=== PATIENT | female | born 1975 | race Caucasian/White ===

== ENCOUNTER 2017-05-04 15:04 | Inpatient (IN) | payer OTHER ==
[2017-05-04] MEDS ORDERED: VANCOMYCIN IV PER PHARMACY 1 EACH MISC MISCELLANE PRN (15:35)
[2017-05-04] MEDS ORDERED: cefTRIAXone IN SWFI 1,000 MG/10 ML SYRINGE IVP STA (15:35)
[2017-05-04] MEDS ORDERED: MORPHINE SULFATE 4 MG/ML SYRINGE IVP STA ×2 (15:38→18:02)
--- NOTE | 2017-05-04 15:38 | ED ---
General Adult HPI - General Chief complaint: Skin/Abscess/Foreign Body Stated complaint: poss cellulitis Time Seen by Provider: 05/04/17 15:05 Source: patient, RN notes reviewed Mode of arrival: ambulatory Limitations: no limitations - History of Present Illness Initial comments: This is a 41-year-old female presents to the emergency department complaining of an abscess and cellulitis to her right buttocks. Patient states she went to [facility] where she had a CAT scan and was told she had an abscess she was told to stay in the hospital but she refused. Patient states she's been taking her antibiotic for one day and the pain is gotten considerably worse and her OxyContin that she normally takes is not handling the pain. Patient denies any fever or chills. Patient states the pain is definitely getting worse. He denies any abdominal pain patient denies any chest pain difficulty breathing or shortness of breath. Patient denies headache patient denies numbness weakness. Patient denies any other areas of abscess or redness. - Related Data Home Medications Medication Instructions Recorded Confirmed DULoxetine HCL [Cymbalta] 120 mg PO DAILY 12/25/14 05/04/17 Linaclotide [Linzess] 145 mcg PO DAILY@199912/25/14 05/04/17 tiZANidine HCL 6 mg PO 12/25/14 05/04/17 Benzonatate [Benzonatate Perle] 200 mg PO TID PRN 05/04/17 05/04/17 Budesonide/Formoterol Fumarate 2 puff INHALATION RT-BID PRN 05/04/17 05/04/17 [Symbicort 160-4.5 Mcg Inhaler] Cephalexin [Keflex] 500 mg PO QID 05/04/17 05/04/17 Ibuprofen [Motrin] 800 mg PO QID 05/04/17 05/04/17 Medroxyprogesterone Acetate 150 mg IM Q90D 05/04/17 05/04/17 [Depo-Provera] Omeprazole [PriLOSEC] 40 mg PO DAILY@199905/04/17 05/04/17 QUEtiapine [SEROquel] 400 mg PO DAILY@199905/04/17 05/04/17 Ramelteon [Rozerem] 8 mg PO 05/04/17 05/04/17 Stelara (Unknown Dose) 1 dose SQ Q90D 05/04/17 05/04/17 Sulfamethox-Tmp 800-160Mg [Bactrim 1 tab PO Q12HR 05/04/17 05/04/17 DS 800-160 mg] Topiramate [Topamax] 200 mg PO DAILY@199905/04/17 05/04/17 busPIRone HCL 30 mg PO BID 05/04/17 05/04/17 carBAMazepine [TEGretol] 600 mg PO HS 05/04/17 05/04/17 hydrOXYzine HCL 25 mg PO HS 05/04/17 05/04/17 oxyCODONE HCL [oxyCODONE HCL ER] 60 mg PO Q12H 05/04/17 05/04/17 traZODone HCL 300 mg PO HS 05/04/17 05/04/17 Allergies Allergy/AdvReac Type Severity Reaction Status Date / Time No Known Allergies Allergy Verified 05/04/17 15:59 Review of Systems ROS Statement: Those systems with pertinent positive or pertinent negative responses have been documented in the HPI. ROS Other: All systems not noted in ROS Statement are negative. Past Medical History Past Medical History: Deep Vein Thrombosis (DVT) Additional Past Medical History / Comment(s): bipolar History of Any Multi-Drug Resistant Organisms: None Reported Past Surgical History: Orthopedic Surgery Additional Past Surgical History / Comment(s): eye surg- dacryoctstorhinostomy Past Psychological History: Bipolar Smoking Status: Current every day smoker Past Alcohol Use History: Occasional Past Drug Use History: Marijuana General Exam - General Exam Comments Initial Comments: GENERAL Patient is well-developed and well-nourished. Patient is in mild distress. EYES Patient's pupils are equal and round. Extraocular motion is intact SKIN Right buttocks has a large area of cellulitis which is indurated and extremely tender NEURO The patient is alert and oriented 3 PYSCH Patient has normal interpersonal interactions. MUSCULOSKELETAL All 4 extremities have full range of motion Limitations: no limitations Course Vital Signs 05/04/17 15:06 Temperature 96.9 F L Pulse Rate 96 Respiratory 18 Rate Blood Pressure 153/79 O2 Sat by Pulse 98 Oximetry Medical Decision Making - Medical Decision Making I received the CAT scan report from her [facility] looks like there is a 5.5 cm area on the right buttocks concerning for an abscess. I started the patient on some Rocephin as well as vancomycin. EKG shows normal sinus rhythm at 93 bpm NC interval is 136 dresses 78 QT interval 360 QTC is 447. Patient's EKG shows no ST segment elevation or depression or T wave abnormalities are noted - Lab Data Result diagrams: 05/04/17 15:33 05/04/17 15:33 Lab Results 05/04/17 05/04/17 05/04/17 Range/Units 15:33 15:33 15:33 WBC 14.9 H (3.8-10.6) k/uL RBC 3.49 L (3.80-5.40) m/uL Hgb 11.5 (11.4-16.0) gm/dL Hct 32.5 L (34.0-46.0) % MCV 93.0 (80.0-100.0) fL MCH 33.0 (25.0-35.0) pg MCHC 35.5 (31.0-37.0) g/dL RDW 12.2 (11.5-15.5) % Plt Count 211 (150-450) k/uL Neutrophils % 81 % Lymphocytes % 9 % Monocytes % 6 % Eosinophils % 1 % Basophils % 0 % Neutrophils # 12.0 H (1.3-7.7) k/uL Lymphocytes # 1.3 (1.0-4.8) k/uL Monocytes # 0.9 (0-1.0) k/uL Eosinophils # 0.2 (0-0.7) k/uL Basophils # 0.1 (0-0.2) k/uL PT (9.0-12.0) sec INR (<1.2) APTT (22.0-30.0) sec Sodium 137 (137-145) mmol/L Potassium 3.2 L (3.5-5.1) mmol/L Chloride 100 (98-107) mmol/L Carbon Dioxide 21 L (22-30) mmol/L Anion Gap 16 mmol/L BUN 8 (7-17) mg/dL Creatinine 0.80 (0.52-1.04) mg/dL Est GFR (CKD-EPI)AfAm >90 (>60 ml/min/1.73 sqM) Est GFR (CKD-EPI)NonAf >90 (>60 ml/min/1.73 sqM) Glucose 119 H (74-99) mg/dL Plasma Lactic Acid Jason 1.0 (0.7-2.0) mmol/L Calcium 9.2 (8.4-10.2) mg/dL Total Bilirubin 0.7 (0.2-1.3) mg/dL AST 43 H (14-36) U/L ALT 36 (9-52) U/L Alkaline Phosphatase 176 H (38-126) U/L Total Protein 6.4 (6.3-8.2) g/dL Albumin 3.4 L (3.5-5.0) g/dL Urine Color Urine Appearance (Clear) Urine pH (5.0-8.0) Ur Specific [place] (1.001-1.035) Urine Protein (Negative) Urine Glucose (UA) (Negative) Urine Ketones (Negative) Urine Blood (Negative) Urine Nitrite (Negative) Urine Bilirubin (Negative) Urine Urobilinogen (<2.0) mg/dL Ur Leukocyte Esterase (Negative) Urine RBC (0-5) /hpf Urine WBC (0-5) /hpf Ur Squamous Epith Cells (0-4) /hpf Urine Bacteria (None) /hpf Hyaline Casts (0-2) /lpf Urine Mucus (None) /hpf 05/04/17 05/04/17 Range/Units 15:33 16:09 WBC (3.8-10.6) k/uL RBC (3.80-5.40) m/uL Hgb (11.4-16.0) gm/dL Hct (34.0-46.0) % MCV (80.0-100.0) fL MCH (25.0-35.0) pg MCHC (31.0-37.0) g/dL RDW (11.5-15.5) % Plt Count (150-450) k/uL Neutrophils % % Lymphocytes % % Monocytes % % Eosinophils % % Basophils % % Neutrophils # (1.3-7.7) k/uL Lymphocytes # (1.0-4.8) k/uL Monocytes # (0-1.0) k/uL Eosinophils # (0-0.7) k/uL Basophils # (0-0.2) k/uL PT 10.1 (9.0-12.0) sec INR 1.0 (<1.2) APTT 24.5 (22.0-30.0) sec Sodium (137-145) mmol/L Potassium (3.5-5.1) mmol/L Chloride (98-107) mmol/L Carbon Dioxide (22-30) mmol/L Anion Gap mmol/L BUN (7-17) mg/dL Creatinine (0.52-1.04) mg/dL Est GFR (CKD-EPI)AfAm (>60 ml/min/1.73 sqM) Est GFR (CKD-EPI)NonAf (>60 ml/min/1.73 sqM) Glucose (74-99) mg/dL Plasma Lactic Acid Jason (0.7-2.0) mmol/L Calcium (8.4-10.2) mg/dL Total Bilirubin (0.2-1.3) mg/dL AST (14-36) U/L ALT (9-52) U/L Alkaline Phosphatase (38-126) U/L Total Protein (6.3-8.2) g/dL Albumin (3.5-5.0) g/dL Urine Color Dark Brown Urine Appearance Cloudy H (Clear) Urine pH 6.0 (5.0-8.0) Ur Specific [place] 1.037 H (1.001-1.035) Urine Protein 3+ H (Negative) Urine Glucose (UA) Trace H (Negative) Urine Ketones Trace H (Negative) Urine Blood Negative (Negative) Urine Nitrite Negative (Negative) Urine Bilirubin 1+ H (Negative) Urine Urobilinogen 12.0 (<2.0) mg/dL Ur Leukocyte Esterase Trace H (Negative) Urine RBC 6 H (0-5) /hpf Urine WBC 31 H (0-5) /hpf Ur Squamous Epith Cells 23 H (0-4) /hpf Urine Bacteria Rare H (None) /hpf Hyaline Casts 688 H (0-2) /lpf Urine Mucus Many H (None) /hpf Disposition Clinical Impression: Abscess of buttock, right Disposition: ADMITTED IP TO THIS HOSP Referrals: Avinash Silverman MD [Primary Care Provider] - 1-2 days Time of Disposition: 16:15
[2017-05-04] MEDS ORDERED: MORPHINE SULFATE/PF 10MG/10ML VL IVP STA (15:42)
[2017-05-04 15:49] LABS: Basophils # (A) 0.1 k/uL (0-0.2); Basophils % (A) 0 %; Eosinophils # (A) 0.2 k/uL (0-0.7); Eosinophils % (A) 1 %; HCT 32.5 % (34.0-46.0); HGB 11.5 gm/dL (11.4-16.0); Lymphocytes # (A) 1.3 k/uL (1.0-4.8); Lymphocytes % (A) 9 %; MCHC 35.5 g/dL (31.0-37.0); Mean Platelet Volume 8.4; Monocytes # (A) 0.9 k/uL (0-1.0); Monocytes % (A) 6 %; Neutrophils % (A) 81 %; Platelet Count 211 k/uL (150-450); RBC 3.49 m/uL (3.80-5.40); RDW 12.2 % (11.5-15.5); WBC 14.9 k/uL (3.8-10.6)
[2017-05-04 15:57] LABS: ALT 36 U/L (9-52); AST 43 U/L (14-36); Albumin 3.4 g/dL (3.5-5.0); Alkaline Phosphatase 176 U/L (38-126); Anion Gap 16 mmol/L; Blood Urea Nitrogen 8 mg/dL (7-17); Calcium 9.2 mg/dL (8.4-10.2); Carbon Dioxide 21 mmol/L (22-30); Chloride 100 mmol/L (98-107); Glucose 119 mg/dL (74-99); Potassium 3.2 mmol/L (3.5-5.1); Sodium 137 mmol/L (137-145); Total Bilirubin 0.7 mg/dL (0.2-1.3); Total Protein 6.4 g/dL (6.3-8.2)
[2017-05-04] MEDS ORDERED: VANCOMYCIN 1,750 MG in SODIUM CHLORIDE 0.9% 250 ML IVPB ONE (16:00)
[2017-05-04 16:18] LABS: Partial Thromboplastin Time 24.5 sec (22.0-30.0); Prothrombin Time 10.1 sec (9.0-12.0)
[2017-05-04 16:27] LABS: Appearance,Urine Cloudy (Clear); Bacteria,Urine Rare /hpf; Bilirubin,Urine 1+ (Negative); Blood,Urine Negative (Negative); Color,Urine Dark Brown; Glucose,Urine (UA) Trace (Negative); Hyaline Casts,Urine 688 /lpf (0-2); Ketones,Urine Trace (Negative); Leukocyte Esterase,Urine Trace (Negative); Mucus,Urine Many /hpf; Nitrite,Urine Negative (Negative); Protein,Urine 3+ (Negative); RBC,Urine 6 /hpf (0-5); Specific Gravity,Urine 1.037 (1.001-1.035); Squamous Epithelial Cell,Urine 23 /hpf (0-4); WBC,Urine 31 /hpf (0-5)
[2017-05-04] MEDS ORDERED: SODIUM CHLORIDE 0.9% 1,000 ML IV ONE (16:50)
[2017-05-04] MEDS: MORPHINE SULFATE/PF 10MG/10ML VL IVP PRN (18:35)
[2017-05-04] MEDS ORDERED: SYMBICORT 160-4.5 MCG INHALER INHALATION PRN (20:44)
[2017-05-04] MEDS ORDERED: Potassium Replacement Protocol 1 EACH MISC MISCELLANE PRN (21:00)
[2017-05-04] MEDS ORDERED: carBAMazepine 200 MG TAB PO SCH (21:00)
[2017-05-04] MEDS ORDERED: IBUPROFEN 400 MG TAB PO PRN (21:00)
[2017-05-04] MEDS: QUEtiapine 400 MG TAB PO SCH (21:46)
[2017-05-04] MEDS: traZODone HCL 100 MG TAB PO SCH (21:46)
[2017-05-04] MEDS: busPIRone HCl 10 MG TAB PO SCH (21:46)
[2017-05-04] MEDS: hydrOXYzine HCL 25 MG TAB PO SCH (21:47)
[2017-05-04] MEDS: TOPIRAMATE 100 MG TAB PO SCH (21:47)
[2017-05-04] MEDS: carBAMazepine 300 MG CPMP.12HR PO SCH (21:48)
[2017-05-04] MEDS: PANTOPRAZOLE 40 MG TABLET PO SCH (21:50)
[2017-05-04] MEDS: POTASSIUM CHLORIDE ER 20 MEQ TAB.ER PO SCH (23:07)
[2017-05-04] MEDS: TEMAZEPAM 15 MG CAP PO SCH (23:07)
[2017-05-04] MEDS: oxyCODONE ER 20 MG TAB.ER.12H PO SCH (23:07)
[2017-05-04] MEDS: VANCOMYCIN 1,500 MG in SODIUM CHLORIDE 0.9% 250 ML IVPB SCH (23:07)
[2017-05-05] MEDS: POTASSIUM CHLORIDE ER 20 MEQ TAB.ER PO SCH ×3 (00:28→11:39)
[2017-05-05] MEDS: ACETAMINOPHEN TAB 325 MG TAB PO PRN ×2 (00:53→15:07)
[2017-05-05] MEDS ORDERED: BENZONATATE 100 MG CAP PO PRN (01:06)
[2017-05-05] MEDS ORDERED: OXYCODONE HCL 60 MG PO SCH (01:15)
[2017-05-05] MEDS: ceFAZolin IN SWFI 2 GM/20 ML SYRINGE IVP SCH ×2 (03:09→08:42)
[2017-05-05] MEDS: HEPARIN SODIUM,PORCINE 5,000 UNIT/ML 1 ML VIAL SQ SCH ×4 (03:09→23:03)
--- NOTE | 2017-05-05 06:16 | HP ---
HISTORY AND PHYSICAL CHIEF COMPLAINTS: Pain and swelling of the left gluteal area. HISTORY OF PRESENT ILLNESS: This 41-year-old woman with a past medical history of DVT, history of sleep apnea, history of bipolar, history of RSD, history of psoriasis, history of ADD, ADHD being followed by Dr. Silverman in the outpatient setting was using control injections every 3 months. The patient is complaining of pain and swelling of the right buttock for the last 1 week, which is increasing in intensity. Patient went to [facility]. A CAT scan was done. The patient refused admission and the patient was taken to [facility] and was admitted for further evaluation and treatment. There is no history of any fever, rigors or chills. No history of headache, loss of consciousness or seizures. PAST MEDICAL HISTORY: History of DVT, CPAP, bipolar, ADD, ADHD, bipolar. MEDICATIONS: Medications prior to admission include home medications are: 1. Depo-Provera 150 mg IM q.90 days. 2. Stelara. 3. Symbicort 160/4.5 two puffs b.i.d. 4. Tegretol 600 mg q.h.s. 5. Topamax 200 mg daily. 6. Prilosec 40 mg b.i.d. 7. Motrin 800 mg q.i.d. 8. Benzonatate 200 mg t.i.d. p.r.n. 9. Hydroxyzine 25 mg q.h.s. 10.Keflex 500 mg p.o. q.i.d. 11.Buspirone 30 mg p.o. b.i.d. 12.Bactrim DS 1 p.o. b.i.d. 13.Rozerem 8 mg p.o. q.h.s. 14.Oxycodone 60 mg p.o. b.i.d. 15.Linzess 140 mcg p.o. daily. 16.Cymbalta 120 mg p.o. daily. 17.Trazodone 300 mg q.h.s. 18.Tizanidine 6 mg q.h.s. 19.Seroquel 400 mg p.o. daily. ALLERGIES: Allergies are none. FAMILY HISTORY: History of breast cancer in the family. SOCIAL HISTORY: History of alcohol, history of THC, history of nicotine dependence. REVIEW OF SYSTEMS: ENT: No diminished hearing or diminished vision. CARDIOVASCULAR SYSTEM: No angina. RESPIRATORY SYSTEM: No cough. GI: As mentioned earlier. : No dysuria. NERVOUS SYSTEM: As mentioned earlier. ALLERGY/IMMUNOLOGY: No history of asthma. MUSCULOSKELETAL: As mentioned earlier. HEMATOLOGY/ONCOLOGY: No history of anemia. ENDOCRINE: No history of diabetes or hypothyroidism. CONSTITUTIONAL: As mentioned earlier. DERMATOLOGY: As mentioned earlier. RHEUMATOLOGY: Negative. PSYCHIATRY: As mentioned earlier. PHYSICAL EXAMINATION: The patient is alert and oriented x3. Pulse is 100, blood pressure 106/52, respiration 20, temperature 101, pulse ox 96% on room air. HEENT: Conjunctivae normal. Oral mucosa moist Neck is no jugular venous distention. No carotid bruit. No lymph node enlargement. CARDIOVASCULAR: S1 and S2 muffled. No S3, no S4. RESPIRATORY: Breath sounds diminished at the bases. No rhonchi. No crackles. ABDOMEN: Soft, nontender. No mass palpable. LEGS: No edema, no swelling. NERVOUS SYSTEM: Higher functions as mentioned earlier. Moves all 4 limbs. No focal deficits. LYMPHATICS: No lymphadenopathy of the neck, axillae or groin. SKIN: Examination of the right gluteal area significant erythema and tenderness and fluctuation also present indicative of gluteal abscess. LABS: WBC 14.9. Potassium 3.2. UA noted. ASSESSMENT: 1. Acute right gluteal abscess with possible sepsis, present on admission. 2. Increased WBC. 3. Hypokalemia. 4. History of deep venous thrombosis. 5. Sleep apnea. 6. History of bipolar. 7. History of reflex sympathetic dystrophy (RSD). 8. History of right femur fracture. 9. History of attention deficit disorder, attention deficit hyperactivity disorder. 10.History of THC. RECOMMENDATIONS AND DISCUSSION: In this 41-year-old woman who presented with multiple complex medical issues, we will monitor the patient. Continue the current medications and symptomatic treatment. Will initiate broad-spectrum IV antibiotics. Otherwise, Infectious Disease as well as surgical consultation has been sought. Guarded prognosis because of multiple complex medical issues. Further recommendations to follow. A copy of dictation forwarded to Dr. Silverman who is the primary physician. MMODL / IJN: [id number] /
[2017-05-05] MEDS: MORPHINE SULFATE/PF 10MG/10ML VL IVP PRN ×2 (06:38→15:15)
[2017-05-05 08:20] LABS: Basophils % (A) 0 %; Eosinophils # (A) 0.2 k/uL (0-0.7); Eosinophils % (A) 2 %; HCT 26.6 % (34.0-46.0); Lymphocytes % (A) 9 %; MCH 33.4 pg (25.0-35.0); MCHC 35.4 g/dL (31.0-37.0); MCV 94.4 fL (80.0-100.0); Monocytes # (A) 0.8 k/uL (0-1.0); Monocytes % (A) 7 %; Neutrophils # (A) 8.5 k/uL (1.3-7.7); Neutrophils % (A) 77 %; Platelet Count 187 k/uL (150-450); RBC 2.82 m/uL (3.80-5.40); RDW 12.5 % (11.5-15.5)
[2017-05-05 08:35] LABS: HGB 9.4 gm/dL (11.4-16.0)
[2017-05-05] MEDS: VANCOMYCIN 1,500 MG in SODIUM CHLORIDE 0.9% 250 ML IVPB SCH ×2 (08:43→22:59)
[2017-05-05] MEDS: busPIRone HCl 10 MG TAB PO SCH ×2 (08:44→22:16)
[2017-05-05] MEDS: DULoxetine HCL 60 MG CAPSULE.DR PO SCH (08:44)
[2017-05-05] MEDS: oxyCODONE ER 20 MG TAB.ER.12H PO SCH ×2 (08:45→20:28)
[2017-05-05 08:57] LABS: Calcium 8.3 mg/dL (8.4-10.2)
[2017-05-05] MEDS ORDERED: IBUPROFEN 800 MG TAB PO SCH (09:00)
[2017-05-05] MEDS ORDERED: Potassium Replacement Protocol 1 EACH MISC MISCELLANE PRN (09:05)
[2017-05-05] MEDS ORDERED: LIDOCAINE 1% INJ 10MG/ML (20 ML MDV) SQ ONE (10:30)
[2017-05-05] MEDS ORDERED: MORPHINE SULFATE/PF 10MG/10ML VL IVP STA (11:06)
[2017-05-05] MEDS: 0.9% NACL WITH KCL 40 MEQ/L 1,000 ML IV SCH ×2 (11:39→23:00)
--- NOTE | 2017-05-05 12:18 | P.GSCN ---
History of Present Illness Consult date: 05/05/17 History of present illness: 41-year-old female presents to the emergency department complaining of pain in her right gluteal region. She states that this pain has been increasing over the last 3 weeks. She states that she normally gets herself injections at this site of her control medication. She states she injected her self approximately 3 weeks ago and then developed a lump at that site. She states that the lump did disappear and the area began to turn red. She states that it also became painful over the past few days. She denies any drainage from the site. She states that she felt feverish at home. She denies any chills, chest pain or shortness of breath. She denies any nausea and vomiting. She states she has never had this issue before. She denies any history of MRSA. Review of Systems All systems: negative Past Medical History Past Medical History: Deep Vein Thrombosis (DVT), Sleep Apnea/CPAP/BIPAP Additional Past Medical History / Comment(s): bipolar reflex sympathetic dystropy(rsd),psoriases, constipation, hx broken rt femur-has adi/screws.no cpap used. some short term memory problemsadha, arthritis. History of Any Multi-Drug Resistant Organisms: None Reported Past Surgical History: Orthopedic Surgery Additional Past Surgical History / Comment(s): eye surg, rt femur sx-adi and screws Past Anesthesia/Blood Transfusion Reactions: Motion Sickness Additional Past Anesthesia/Blood Transfusion Reaction / Comm: clausterphobia Smoking Status: Current every day smoker - Past Family History Mother Family Medical History: No Reported History Father Family Medical History: Cancer Additional Family Medical History / Comment(s): breast cancer Medications and Allergies Home Medications Medication Instructions Recorded Confirmed Type DULoxetine HCL [Cymbalta] 120 mg PO DAILY 12/25/14 05/04/17 History Linaclotide [Linzess] 145 mcg PO DAILY@199912/25/14 05/04/17 History tiZANidine HCL 6 mg PO HS 12/25/14 05/04/17 History Benzonatate [Benzonatate Perle] 200 mg PO TID PRN 05/04/17 05/04/17 History Budesonide/Formoterol Fumarate 2 puff INHALATION RT-BID PRN 05/04/17 05/04/17 History [Symbicort 160-4.5 Mcg Inhaler] Cephalexin [Keflex] 500 mg PO QID 05/04/17 05/04/17 History Ibuprofen [Motrin] 800 mg PO QID 05/04/17 05/04/17 History Medroxyprogesterone Acetate 150 mg IM Q90D 05/04/17 05/04/17 History [Depo-Provera] Omeprazole [PriLOSEC] 40 mg PO DAILY@199905/04/17 05/04/17 History QUEtiapine [SEROquel] 400 mg PO DAILY@199905/04/17 05/04/17 History Ramelteon [Rozerem] 8 mg PO HS 05/04/17 05/04/17 History Stelara (Unknown Dose) 1 dose SQ Q90D 05/04/17 05/04/17 History Sulfamethox-Tmp 800-160Mg [Bactrim 1 tab PO Q12HR 05/04/17 05/04/17 History DS 800-160 mg] Topiramate [Topamax] 200 mg PO DAILY@199905/04/17 05/04/17 History busPIRone HCL 30 mg PO BID 05/04/17 05/04/17 History carBAMazepine [TEGretol] 600 mg PO HS 05/04/17 05/04/17 History hydrOXYzine HCL 25 mg PO HS 05/04/17 05/04/17 History oxyCODONE HCL [oxyCODONE HCL ER] 60 mg PO Q12H 05/04/17 05/04/17 History traZODone HCL 300 mg PO HS 05/04/17 05/04/17 History Allergies Allergy/AdvReac Type Severity Reaction Status Date / Time No Known Allergies Allergy Verified 05/04/17 15:59 Surgical - Exam Osteopathic Statement: *. No significant issues noted on an osteopathic structural exam other than those noted in the History and Physical/Consult. Vital Signs Temp Pulse Resp BP Pulse Ox 96.9 F L 96 18 153/79 98 05/04/17 15:06 05/04/17 15:06 05/04/17 15:06 05/04/17 15:06 05/04/17 15:06 - General well nourished, no distress - Eyes PERRL - ENT no hearing loss - Respiratory No difficulty with respiration - Abdomen Soft, nontender, nondistended, no rebound, no guarding - Integumentary Right hip and gluteal region with erythema, warm to touch, palpable fluctuance and induration - Psychiatric oriented to time, oriented to person, oriented to place Results - Labs 05/05/17 07:32 05/05/17 07:32 Abnormal Lab Results - Last 24 Hours (Table) 05/04/17 05/04/17 05/04/17 Range/Units 15:33 15:33 16:09 WBC 14.9 H (3.8-10.6) k/uL RBC 3.49 L (3.80-5.40) m/uL Hgb (11.4-16.0) gm/dL Hct 32.5 L (34.0-46.0) % Neutrophils # 12.0 H (1.3-7.7) k/uL Sodium (137-145) mmol/L Potassium 3.2 L (3.5-5.1) mmol/L Carbon Dioxide 21 L (22-30) mmol/L Creatinine (0.52-1.04) mg/dL Glucose 119 H (74-99) mg/dL Calcium (8.4-10.2) mg/dL AST 43 H (14-36) U/L Alkaline Phosphatase 176 H (38-126) U/L Albumin 3.4 L (3.5-5.0) g/dL Urine Appearance Cloudy H (Clear) Ur Specific [place] 1.037 H (1.001-1.035) Urine Protein 3+ H (Negative) Urine Glucose (UA) Trace H (Negative) Urine Ketones Trace H (Negative) Urine Bilirubin 1+ H (Negative) Ur Leukocyte Esterase Trace H (Negative) Urine RBC 6 H (0-5) /hpf Urine WBC 31 H (0-5) /hpf Ur Squamous Epith Cells 23 H (0-4) /hpf Urine Bacteria Rare H (None) /hpf Hyaline Casts 688 H (0-2) /lpf Urine Mucus Many H (None) /hpf 05/05/17 05/05/17 Range/Units 07:32 07:32 WBC 11.0 H (3.8-10.6) k/uL RBC 2.82 L (3.80-5.40) m/uL Hgb 9.4 L D (11.4-16.0) gm/dL Hct 26.6 L (34.0-46.0) % Neutrophils # 8.5 H (1.3-7.7) k/uL Sodium 136 L (137-145) mmol/L Potassium 3.0 L* (3.5-5.1) mmol/L Carbon Dioxide 18 L (22-30) mmol/L Creatinine 1.36 H (0.52-1.04) mg/dL Glucose (74-99) mg/dL Calcium 8.3 L (8.4-10.2) mg/dL AST (14-36) U/L Alkaline Phosphatase (38-126) U/L Albumin (3.5-5.0) g/dL Urine Appearance (Clear) Ur Specific [place] (1.001-1.035) Urine Protein (Negative) Urine Glucose (UA) (Negative) Urine Ketones (Negative) Urine Bilirubin (Negative) Ur Leukocyte Esterase (Negative) Urine RBC (0-5) /hpf Urine WBC (0-5) /hpf Ur Squamous Epith Cells (0-4) /hpf Urine Bacteria (None) /hpf Hyaline Casts (0-2) /lpf Urine Mucus (None) /hpf Microbiology - Last 24 Hours (Table) 05/04/17 16:09 Urine Culture - Preliminary Urine,Voided Diabetes panel 05/04/17 05/05/17 Range/Units 15:33 07:32 Sodium 137 136 L (137-145) mmol/L Potassium 3.2 L 3.0 L* (3.5-5.1) mmol/L Chloride 100 105 (98-107) mmol/L Carbon Dioxide 21 L 18 L (22-30) mmol/L BUN 8 12 (7-17) mg/dL Creatinine 0.80 1.36 H (0.52-1.04) mg/dL Glucose 119 H 98 (74-99) mg/dL Calcium 9.2 8.3 L (8.4-10.2) mg/dL AST 43 H (14-36) U/L ALT 36 (9-52) U/L Alkaline Phosphatase 176 H (38-126) U/L Total Protein 6.4 (6.3-8.2) g/dL Albumin 3.4 L (3.5-5.0) g/dL Calcium panel 05/04/17 05/05/17 Range/Units 15:33 07:32 Calcium 9.2 8.3 L (8.4-10.2) mg/dL Albumin 3.4 L (3.5-5.0) g/dL Pituitary panel 05/04/17 05/05/17 Range/Units 15:33 07:32 Sodium 137 136 L (137-145) mmol/L Potassium 3.2 L 3.0 L* (3.5-5.1) mmol/L Chloride 100 105 (98-107) mmol/L Carbon Dioxide 21 L 18 L (22-30) mmol/L BUN 8 12 (7-17) mg/dL Creatinine 0.80 1.36 H (0.52-1.04) mg/dL Glucose 119 H 98 (74-99) mg/dL Calcium 9.2 8.3 L (8.4-10.2) mg/dL Adrenal panel 05/04/17 05/05/17 Range/Units 15:33 07:32 Sodium 137 136 L (137-145) mmol/L Potassium 3.2 L 3.0 L* (3.5-5.1) mmol/L Chloride 100 105 (98-107) mmol/L Carbon Dioxide 21 L 18 L (22-30) mmol/L BUN 8 12 (7-17) mg/dL Creatinine 0.80 1.36 H (0.52-1.04) mg/dL Glucose 119 H 98 (74-99) mg/dL Calcium 9.2 8.3 L (8.4-10.2) mg/dL Total Bilirubin 0.7 (0.2-1.3) mg/dL AST 43 H (14-36) U/L ALT 36 (9-52) U/L Alkaline Phosphatase 176 H (38-126) U/L Total Protein 6.4 (6.3-8.2) g/dL Albumin 3.4 L (3.5-5.0) g/dL Assessment and Plan (1) Abscess of buttock, right Narrative/Plan: 41-year-old female with large abscess of the right gluteal region - Plan for incision and drainage - Will obtain cultures from incision and drainage - Continue antibiotics - Further wound care instructions after drainage is completed Current Visit: Yes Status: Acute Code(s): L02.31 - CUTANEOUS ABSCESS OF BUTTOCK SNOMED Code(s): 30643128
--- NOTE | 2017-05-05 12:21 | P.PCN ---
Date of Procedure: 05/05/17 Preoperative Diagnosis: Abscess of right gluteal region Postoperative Diagnosis: Large abscess of right gluteal region Procedure(s) Performed: Incision and drainage of abscess Anesthesia: local Surgeon: Galen Dotson Pathology: other (Anaerobic and aerobic cultures of abscess sent) Condition: stable Disposition: floor Indications for Procedure: 41-year-old female with large abscess of her right gluteal region. Surrounding erythema and induration with palpable fluctuance. The patient was explained the risks, benefits and alternatives to the procedure provided consent prior to having the procedure performed. Operative Findings: Greater than 50 mL of purulent and foul-smelling material drained Description of Procedure: The patient was prepped and draped in regular sterile fashion. Local anesthetic was administered to the anticipated incision site. A cruciate incision was made and immediate evacuation of purulent material was noted. This was cultured for anaerobic and aerobic cultures. Hemostat was used to breakup any loculations surrounding the area. A large amount of pressure was placed in the 3-60 fashion around the site and greater than 50 mL of purulent material was drained. This was noted to be foul-smelling. Approximately 40 mL of saline was used to irrigate this entire wound. Additional amounts of purulent material was then evacuated. A iodoform packing was placed. Dressing was applied. The patient tolerated the procedure.
[2017-05-05] MEDS ORDERED: PIPERACILLIN-TAZOBACTAM 3.375 GM in DEXTROSE/WATER 1 50ML.BAG IVPB SCH (14:00)
--- NOTE | 2017-05-05 14:35 | PN ---
PROGRESS NOTE DATE OF SERVICE: 05/05/2017 INTERVAL HISTORY: This is a 41-year-old woman who was admitted with acute right gluteal abscess with possible sepsis is being closely monitored. No chest pain. No palpitations. No fever. Dr. Dotson has done a bedside incision and drainage which resulted in more than 50% purulent, foul-smelling material was drained, cultures was sought. No chest pain. No palpitations. No fever. PHYSICAL EXAM: Alert and oriented x3. Pulse is 98, blood pressure 100/52, respirations 16, temperature 98.8, T-max 100.1, pulse ox 98% on room air. HEENT: Conjunctivae normal. NECK: No jugular venous distension. CARDIOVASCULAR SYSTEM: S1, S2, muffled. RESPIRATORY: Breath sounds diminished at the bases, no rhonchi, no crackles. Abdomen is soft, nontender. No mass palpable. LEGS: Right gluteal abscess, status post incision and drainage. NERVOUS SYSTEM: No focal deficits. LABS: WBC 11, hemoglobin is 9.4, sodium 130, potassium 3. REVIEW OF SYSTEMS: CARDIOVASCULAR: No angina or palpitation. RESPIRATORY: As mentioned earlier. GI: As mentioned earlier. : None. NERVOUS SYSTEM: No numbness or weakness. MEDICATIONS: Reviewed and include: 1. Tylenol 650 q.6 p.r.n. 2. Tessalon Perles. 3. Symbicort b.i.d. 4. Buspar 50 mg b.i.d. 5. Carbatrol 600 mg q.h.s. 6. Kefzol 2 g IV q.8. 7. Cymbalta 120 mg q.h.s. 8. Heparin 5000 units subcu q.8. 9. Atarax. 10.Linzess. 11.Protonix. 12.Seroquel. 13.Restoril. 14.Desyrel. 15.Vancomcyin. I would also recommend initiate Zosyn. Guarded prognosis because of multiple complex medical issues. Further recommendations to follow. ASSESSMENT: 1. Acute right gluteal abscess with possible sepsis, present on admission. 2. Increased WBC. 3. Status post incision and drainage. 4. Hyponatremia. 5. Hypokalemia. 6. Increased creatinine. 7. History of deep vein thrombosis. 8. Sleep apnea. 9. History of bipolar. 10.History of RSD. 11.History of right femur fracture. 12.History ADHD. 13.History of THC. RECOMMENDATION: Recommend to continue current management and symptomatic treatment with broad-spectrum IV antibiotics. Obtain cultures. Infectious Disease evaluation, possible surgery. DVT prophylaxis. I would also recommend IV fluids, potassium supplementation. Will monitor the creatinine closely. Avoid nephrotoxic medications including ibuprofen. Prognosis guarded because of multiple complex medical issues. Further recommendations to follow. I would also recommend initiate Zosyn. MMODL / IJN: [id number] /
[2017-05-05] MEDS: cefTRIAXone IN SWFI 1,000 MG/10 ML SYRINGE IVP SCH (15:07)
[2017-05-05 15:24] VITALS: BMI 31.3
--- NOTE | 2017-05-05 19:11 | CONS ---
CONSULTATION DATE OF SERVICE: 05/05/2017. REASON FOR CONSULTATION: Right gluteal abscess. HISTORY OF PRESENT ILLNESS: The patient is a 41-year-old female who developed boil on her right gluteal area more than 3 weeks ago. That area has been becoming progressively bigger in size, painful. Pain described to be throbbing almost 7 to 8/10, and no radiation. With these symptoms, the patient presented to the [facility] on 05/02/2017 when the patient did have a CT of the pelvis which did show a 5.5 cm collection likely suspicious for abscess. There was no documentation of an extension to the bowel area. She has been advised admission to hospital for drainage of this abscess. However, the patient refused and ended up leaving AGAINST MEDICAL ADVICE. She was prescribed Keflex and Bactrim on discharge. The patient now presenting to the [facility] on 05/04/2017 with chief complaints of worsening pain in that area. The patient did have chills and rigors, but no high-grade fever. With these symptoms, the patient was evaluated by the ER physician. She has been given multiple antibiotic therapy including Rocephin, cefazolin and now switched over to Zosyn and Vanco. Infectious Disease was consulted for further recommendation of antibiotic therapy. The patient did have fever 101 degrees Fahrenheit last night. On arrival, she did have elevated white count of 14.9. UA was mildly positive and the patient denied significant urinary symptoms. The patient has been evaluated by Surgery and the patient did have drainage of the right gluteal abscess with drainage of significant amount of purulent secretions. REVIEW OF SYSTEMS: CONSTITUTIONAL: Positive for weakness along with the fever. EYES: No complaint. ENT: No complaint. RESPIRATORY: No complaint. CARDIOVASCULAR: No complaint. GENITOURINARY: No complaint. GASTROINTESTINAL: No complaint. MUSCULOSKELETAL: As per HPI. INTEGUMENTARY: As per HPI. PSYCHOLOGICAL: No complaint. ENDOCRINE: No complaint. NEUROLOGIC: No complaint. PAST MEDICAL HISTORY: Significant for history of DVT, bipolar disorder. PAST SURGERY HISTORY: Right hip fracture repair when she was 20 and eye surgery. SOCIAL HISTORY: Positive for current everyday smoker. Occasionally drinks and marijuana use. FAMILY HISTORY: No pertinent findings noticed. ALLERGIES: No known drug allergies. MEDICATION: Medications include the patient is currently on vancomycin pharmacy to dose. She is on Desyrel, Topamax, Zanaflex, Restoril, Seroquel, pip-tazobactam, Protonix, OxyContin, morphine sulfate, Atarax, heparin, Cymbalta, BuSpar, Symbicort, and Tylenol. PHYSICAL EXAMINATION: Blood pressure 105/52 with a pulse of 90, temperature 98.8, T-max 101. She is 93% room air. General description is a middle aged female, lying in bed in no distress. No tachypnea or accessory muscle of respiration use. HEENT: Shows slight pallor. No scleral icterus. Oral mucous membranes dry. NECK: Trachea central. No thyromegaly. LUNGS: Unlabored breathing. Clear to auscultation anteriorly. No wheeze or crackle. HEART: S1, S2. Regular rate and rhythm noted. ABDOMEN: Soft, no tenderness. No guarding or rigidity. EXTREMITIES: No edema feet. Right gluteal area with significant induration that has been just drained with drainage of purulent material. NEUROLOGICAL: Patient is awake, alert, oriented x3 affect normal. LABS: Hemoglobin 9.4, admission white count was 14.9, down to 11 today. BUN of 12, creatinine 1.36. Urine was cloudy, leukocyte esterase was trace, [address] was reviewed that was done at [facility], did show a 5.5 cm right gluteal abscess. No abnormality of the bowel content. DIAGNOSTIC IMPRESSION/PLAN: 1. Patient admitted to the hospital with sepsis in a patient who does have a fever of 101 degrees Fahrenheit. The patient did have a elevated white count of 14.9 with tachycardia meeting criteria for SIRS. Source is right gluteal abscess with likely a streptococcal disease, question of possible community associated MRSA not entirely excluded. 2. Patient does have borderline kidney function, hence, that will need to be monitored closely while on vancomycin. 3. Patient with mildly positive UA and underlying urinary tract infection with enteric gram-negative pathogen not excluded. PLAN: 1. Vancomycin pharmacy to dose, target of 15, watching her trough level very closely. 2. Gentle IV fluid. 3. Will discontinue Zosyn and give a short course of IV Rocephin to cover for UTI. Unfortunately cannot use the Cipro because of the patient is on Cymbalta with drug interaction. 4. Depending upon clinical response as well as culture, adjust her medications further if needed. Thank you for this consultation. Will follow this patient along with you. MMODL / IJN: [id number] /
[2017-05-05] MEDS: PANTOPRAZOLE 40 MG TABLET PO SCH (20:23)
[2017-05-05] MEDS: QUEtiapine 400 MG TAB PO SCH (20:24)
[2017-05-05] MEDS: carBAMazepine 300 MG CPMP.12HR PO SCH (20:25)
[2017-05-05] MEDS: TOPIRAMATE 100 MG TAB PO SCH (20:25)
[2017-05-05 21:01] LABS: Calcium 8.5 mg/dL (8.4-10.2); Potassium 3.9 mmol/L (3.5-5.1)
[2017-05-05] MEDS: Linaclotide [Linzess] 145 MCG PO SCH (22:15)
[2017-05-05] MEDS: traZODone HCL 100 MG TAB PO SCH (22:15)
[2017-05-05] MEDS: hydrOXYzine HCL 25 MG TAB PO SCH (22:15)
[2017-05-05] MEDS: TEMAZEPAM 15 MG CAP PO SCH (22:17)
[2017-05-06] MEDS ORDERED: VANCOMYCIN TROUGH DUE 1 EACH MISC MISCELLANE ONE (07:00)
[2017-05-06] MEDS: busPIRone HCl 10 MG TAB PO SCH ×2 (07:59→20:06)
[2017-05-06] MEDS: DULoxetine HCL 60 MG CAPSULE.DR PO SCH (07:59)
[2017-05-06] MEDS: cefTRIAXone IN SWFI 1,000 MG/10 ML SYRINGE IVP SCH (08:00)
[2017-05-06] MEDS: HEPARIN SODIUM,PORCINE 5,000 UNIT/ML 1 ML VIAL SQ SCH ×3 (08:00→23:30)
[2017-05-06] MEDS: oxyCODONE ER 20 MG TAB.ER.12H PO SCH ×2 (08:00→20:09)
[2017-05-06] MEDS: MORPHINE SULFATE/PF 10MG/10ML VL IVP PRN (08:08)
[2017-05-06 08:57] LABS: Basophils % (A) 0 %; Eosinophils # (A) 0.3 k/uL (0-0.7); Eosinophils % (A) 3 %; HCT 32.1 % (34.0-46.0); HGB 10.7 gm/dL (11.4-16.0); Lymphocytes # (A) 1.5 k/uL (1.0-4.8); Lymphocytes % (A) 16 %; MCH 32.5 pg (25.0-35.0); MCHC 33.2 g/dL (31.0-37.0); MCV 97.9 fL (80.0-100.0); Mean Platelet Volume 8.5; Monocytes # (A) 0.6 k/uL (0-1.0); Monocytes % (A) 6 %; Neutrophils # (A) 6.9 k/uL (1.3-7.7); Neutrophils % (A) 72 %; Platelet Count 218 k/uL (150-450); RBC 3.28 m/uL (3.80-5.40); RDW 12.7 % (11.5-15.5); WBC 9.6 k/uL (3.8-10.6)
[2017-05-06 09:54] LABS: Calcium 8.9 mg/dL (8.4-10.2); Potassium 3.5 mmol/L (3.5-5.1)
--- NOTE | 2017-05-06 10:23 | P.PN ---
Subjective Progress Note Date: 05/06/17 Patient seen and examined at bedside. States that the pain at the site of the drainage is greatly improved. She is able to be mobile without any difficulty at this point. There has been continued drainage over night with multiple dressing changes. She is tolerating her regular diet. Denies any nausea and vomiting. Objective - Vital Signs Vital signs: Vital Signs Temp 98.7 F 05/06/17 07:00 Pulse 89 05/06/17 07:00 Resp 16 05/06/17 07:00 BP 102/57 05/06/17 07:00 Pulse Ox 94 L 05/06/17 07:00 Intake & Output 05/05/17 05/06/17 05/06/17 18:59 06:59 18:59 Intake Total 500 Balance 500 Weight 93.44 kg Intake: Oral 500 Other: Voiding Method Toilet Toilet # Voids 3 2 # Bowel Movements 0 - Constitutional General appearance: Present: cooperative, no acute distress - EENT ENT: Present: hearing grossly normal - Respiratory Details: No difficulty with respiration - Gastrointestinal Gastrointestinal Comment(s): Soft, nontender, nondistended, no rebound, no guarding - Integumentary Integumentary Comment(s): Incision and drainage site on right gluteal area with continued drainage, packing was in place, erythema greatly decreased in the area, induration greatly decreased in the area - Psychiatric Psychiatric: Present: A&O x's 3 - Labs CBC & Chem 7: 05/06/17 08:33 05/06/17 08:33 Labs: Abnormal Lab Results - Last 24 Hours (Table) 05/05/17 05/06/17 05/06/17 Range/Units 19:56 08:33 08:33 RBC 3.28 L (3.80-5.40) m/uL Hgb 10.7 L (11.4-16.0) gm/dL Hct 32.1 L (34.0-46.0) % Sodium 134 L (137-145) mmol/L Chloride 108 H (98-107) mmol/L Carbon Dioxide 17 L 16 L (22-30) mmol/L Creatinine 1.40 H 1.33 H (0.52-1.04) mg/dL Glucose 103 H (74-99) mg/dL Microbiology - Last 24 Hours (Table) 05/05/17 11:53 Gram Stain - Preliminary Buttock Wound Culture - Preliminary 05/04/17 16:09 Urine Culture - Final Urine,Voided 05/04/17 15:33 Blood Culture - Preliminary Blood No Growth after 24 hours 05/05/17 11:53 Anaerobic Culture - Preliminary Buttock Assessment and Plan (1) Abscess of buttock, right Narrative/Plan: 41-year-old female with large abscess of the right gluteal region - Packing removed - Continue antibiotics per infectious disease recommendations - Continue regular diet - Discussed with the nurse, plan for appropriate hygiene with showering today - Will continue to follow Current Visit: Yes Status: Acute Code(s): L02.31 - CUTANEOUS ABSCESS OF BUTTOCK SNOMED Code(s): 10401827
[2017-05-06] MEDS: 0.9% NACL WITH KCL 40 MEQ/L 1,000 ML IV SCH ×2 (10:44→20:31)
[2017-05-06] MEDS ORDERED: MORPHINE ORAL SOLN 10 MG/5 ML CUP PO PRN (14:52)
[2017-05-06] MEDS: VANCOMYCIN 1,500 MG in SODIUM CHLORIDE 0.9% 250 ML IVPB SCH (15:18)
--- NOTE | 2017-05-06 16:09 | PN ---
PROGRESS NOTE DATE OF SERVICE: 05/06/2017 REASON FOR FOLLOWUP: 1. Right gluteal abscess. 2. UTI. INTERVAL HISTORY: The patient is afebrile. She is breathing comfortably. Pain to the gluteal area is slightly controlled; still has significant drainage from it. Denies having any chest pain, shortness of breath or cough. No abdominal pain or any diarrhea. PHYSICAL EXAMINATION: Blood pressure 102/57 with a pulse of 89, temperature 98.7. She is 94% on room air. General description is a middle-aged female up in the room in no distress. RESPIRATORY SYSTEM: Unlabored breathing. Clear to auscultation anteriorly. HEART: S1, S2. Regular rate and rhythm. ABDOMEN: Soft. No tenderness. LABS: Hemoglobin is 10.7, white count 11.6 with a BUN of 14, creatinine 1.33. The right gluteal wound culture is currently pending; so far negative. DIAGNOSTIC IMPRESSION AND PLAN: 1. Patient with a right gluteal abscess, status post drainage. While waiting for the culture to finalize to adjust antibiotic further, keep the patient on vancomycin while watching her kidney function closely, . In addition to that . 2. Possible urinary tract infection with positive urinalysis. Currently covered with Rocephin. Waiting for the urinary culture to be finalized. MMODL / IJN: [id number] /
[2017-05-06] MEDS ORDERED: Potassium Replacement Protocol 1 EACH MISC MISCELLANE PRN (18:34)
[2017-05-06] MEDS ORDERED: Magnesium Replacement Protocol 1 EACH MISC MISCELLANE PRN (18:34)
--- NOTE | 2017-05-06 18:43 | P.PN ---
Subjective Progress Note Date: 05/06/17 Progress Note being dictated for Dr. Goodrich. Interval history: This a 41-year-old female admitted with acute right gluteal abscess, possible sepsis. Status post bedside I&D yesterday. Purulent drainage cultured, results pending. Significant drainage, required 4 dressing changes throughout the night and 2 this morning. Pain better controlled. Maintained on vancomycin and Rocephin .Afebrile, T-max 101.6, leukocytosis resolved. Sodium WNL. Potassium 3.5. Denies chest pain, palpitations or increased shortness of breath. Objective - Vital Signs Vital signs: Vital Signs Temp 98.7 F 05/06/17 07:00 Pulse 89 05/06/17 07:00 Resp 16 05/06/17 07:00 BP 102/57 05/06/17 07:00 Pulse Ox 94 L 05/06/17 07:00 Intake & Output 05/05/17 05/06/17 05/06/17 18:59 06:59 18:59 Intake Total 500 Balance 500 Weight 93.44 kg Intake: Oral 500 Other: Voiding Method Toilet Toilet # Voids 3 2 2 # Bowel Movements 0 - Exam PHYSICAL EXAM: VITAL SIGNS: As above GENERAL: Sitting up in bed, no acute distress HEENT: Conjunctivae normal. eyes normal. Oral mucosa moist NECK: No JVD. No thyroid enlargement. No LNs CARDIOVASCULAR: S1, S2 muffled. No murmur RESPIRATION: Breath sounds diminished in the bases. No rhonchi or crackles. ABDOMEN: Soft, nontender . No guarding. no masses palpable. Bowel sounds heard. LEGS: Right gluteal abscess, status post I&D, dressing clean dry and intact PSYCHIATRY: Alert and oriented -3, mood and affect normal. NERVOUS SYSTEM: Cranial N 2-12 grossly normal. Moves all 4 limbs. Diffuse weakness No focal deficits. Microbiology 05/04/17 15:33 Blood Blood Culture - Preliminary No Growth after 48 hours 05/05/17 11:53 Buttock Gram Stain - Preliminary 05/05/17 11:53 Buttock Wound Culture - Preliminary 05/04/17 16:09 Urine,Voided Urine Culture - Final 05/05/17 11:53 Buttock Anaerobic Culture - Preliminary - Labs CBC & Chem 7: 05/06/17 08:33 05/06/17 08:33 Labs: Abnormal Lab Results - Last 24 Hours (Table) 05/05/17 05/06/17 05/06/17 Range/Units 19:56 08:33 08:33 RBC 3.28 L (3.80-5.40) m/uL Hgb 10.7 L (11.4-16.0) gm/dL Hct 32.1 L (34.0-46.0) % Sodium 134 L (137-145) mmol/L Chloride 108 H (98-107) mmol/L Carbon Dioxide 17 L 16 L (22-30) mmol/L Creatinine 1.40 H 1.33 H (0.52-1.04) mg/dL Glucose 103 H (74-99) mg/dL Microbiology - Last 24 Hours (Table) 05/05/17 11:53 Gram Stain - Preliminary Buttock Wound Culture - Preliminary 05/04/17 16:09 Urine Culture - Final Urine,Voided 05/04/17 15:33 Blood Culture - Preliminary Blood No Growth after 24 hours 05/05/17 11:53 Anaerobic Culture - Preliminary Buttock Assessment and Plan Assessment: 1. Acute right gluteal abscess with possible sepsis, present on admission, status post I&D 2. Leukocytosis, resolved 3. Hyponatremia, resolved 4. Acute renal failure 5. Hyperkalemia 6. History of bipolar Plan: Continue on current medication regime ,monitoring and symptomatic treatment. Maintain IV antibiotics as per infectious disease. Follow cultures closely. Close monitoring of renal function, electrolytes, magnesium level pending. Electrolyte supplementation as per replacement protocols. Repeat labs in a.m. increase ambulation as tolerated. The impression and plan of care has been dictated as directed. : I performed a history and examination of this patient, discussed the same with the dictator. I agree with the dictator's note ,documented as a scribe. Any additional findings or plans will be noted.
[2017-05-06] MEDS: QUEtiapine 400 MG TAB PO SCH (20:05)
[2017-05-06] MEDS: carBAMazepine 300 MG CPMP.12HR PO SCH (20:05)
[2017-05-06] MEDS: PANTOPRAZOLE 40 MG TABLET PO SCH (20:09)
[2017-05-06] MEDS: TOPIRAMATE 100 MG TAB PO SCH (20:09)
[2017-05-06] MEDS: Linaclotide [Linzess] 145 MCG PO SCH (20:13)
[2017-05-06] MEDS: hydrOXYzine HCL 25 MG TAB PO SCH (20:32)
[2017-05-06] MEDS: traZODone HCL 100 MG TAB PO SCH (20:33)
[2017-05-06] MEDS: TEMAZEPAM 15 MG CAP PO SCH (20:35)
[2017-05-07] MEDS ORDERED: VANCOMYCIN TROUGH DUE 1 EACH MISC MISCELLANE ONE (07:00)
[2017-05-07] MEDS: busPIRone HCl 10 MG TAB PO SCH ×2 (08:18→20:10)
[2017-05-07] MEDS: DULoxetine HCL 60 MG CAPSULE.DR PO SCH (08:18)
[2017-05-07] MEDS: HEPARIN SODIUM,PORCINE 5,000 UNIT/ML 1 ML VIAL SQ SCH ×3 (08:19→23:10)
[2017-05-07] MEDS: VANCOMYCIN 1,500 MG in SODIUM CHLORIDE 0.9% 250 ML IVPB SCH (08:19)
[2017-05-07] MEDS: oxyCODONE ER 20 MG TAB.ER.12H PO SCH ×2 (08:19→20:10)
[2017-05-07] MEDS: cefTRIAXone IN SWFI 1,000 MG/10 ML SYRINGE IVP SCH (08:19)
[2017-05-07 08:44] LABS: Calcium 8.3 mg/dL (8.4-10.2); Potassium 3.7 mmol/L (3.5-5.1)
[2017-05-07 09:03] LABS: Basophils % (A) 0 %; Eosinophils # (A) 0.2 k/uL (0-0.7); Eosinophils % (A) 3 %; HCT 27.3 % (34.0-46.0); Lymphocytes # (A) 0.9 k/uL (1.0-4.8); Lymphocytes % (A) 14 %; MCH 32.4 pg (25.0-35.0); MCHC 32.7 g/dL (31.0-37.0); Mean Platelet Volume 8.4; Monocytes # (A) 0.4 k/uL (0-1.0); Monocytes % (A) 6 %; Neutrophils # (A) 4.5 k/uL (1.3-7.7); Neutrophils % (A) 73 %; Platelet Count 230 k/uL (150-450); RBC 2.76 m/uL (3.80-5.40); RDW 12.6 % (11.5-15.5); WBC 6.1 k/uL (3.8-10.6)
--- NOTE | 2017-05-07 12:09 | P.PN ---
Subjective Progress Note Date: 05/07/17 Patient seen and examined at bedside. She states that her pain has improved. She states she is very irritated with her roommate and is in tears secondary to this. She is considering leaving AMA. She refuses to shower due to the temperature of the water. Objective - Vital Signs Vital signs: Vital Signs Temp 97.3 F L 05/07/17 07:00 Pulse 108 H 05/07/17 07:00 Resp 16 05/07/17 07:00 BP 120/61 05/07/17 07:00 Pulse Ox 96 05/07/17 07:00 Intake & Output 05/06/17 05/07/17 05/07/17 18:59 06:59 18:59 Intake Total 200 600 Balance 200 600 Intake: IV 600 0.9% NaCl with KCl 40 Meq 600 /l 1,000 ml @ 75 mls/hr IV .[id number] OLENA Rx#: [id number] Oral 200 Other: Voiding Method Toilet # Voids 2 1 - Constitutional General appearance: Present: no acute distress - Respiratory Details: No difficulty with respiration - Gastrointestinal Gastrointestinal Comment(s): Soft, nontender, nondistended, no rebound, no guarding - Integumentary Integumentary Comment(s): Incision site on right gluteal region with continued mild serous drainage, erythema greatly decreased, no palpable induration - Labs CBC & Chem 7: 05/07/17 07:18 05/07/17 07:18 Labs: Abnormal Lab Results - Last 24 Hours (Table) 05/07/17 05/07/17 Range/Units 07:18 07:18 RBC 2.76 L (3.80-5.40) m/uL Hgb 9.0 L D (11.4-16.0) gm/dL Hct 27.3 L (34.0-46.0) % Lymphocytes # 0.9 L (1.0-4.8) k/uL Chloride 113 H (98-107) mmol/L Carbon Dioxide 17 L (22-30) mmol/L Creatinine 1.18 H (0.52-1.04) mg/dL Calcium 8.3 L (8.4-10.2) mg/dL Microbiology - Last 24 Hours (Table) 05/05/17 11:53 Anaerobic Culture - Preliminary Buttock 05/04/17 15:33 Blood Culture - Preliminary Blood No Growth after 48 hours 05/05/17 11:53 Gram Stain - Preliminary Buttock Wound Culture - Preliminary Assessment and Plan (1) Abscess of buttock, right Narrative/Plan: 41-year-old female with large abscess of the right gluteal region - Continue dressing changes as necessary - Continue antibiotics per infectious disease recommendations - Continue regular diet - Pt refusing to shower - Discussed importance of continuing admission for antibiotic therapy with the patient. Current Visit: Yes Status: Acute Code(s): L02.31 - CUTANEOUS ABSCESS OF BUTTOCK SNOMED Code(s): 85005184
[2017-05-07] MEDS: 0.9% NACL WITH KCL 40 MEQ/L 1,000 ML IV SCH (12:15)
--- NOTE | 2017-05-07 12:49 | PN ---
PROGRESS NOTE DATE OF SERVICE: 05/07/2017 REASON FOR FOLLOWUP: 1. Right gluteal abscess. 2. Possible UTI. INTERVAL HISTORY: The patient is afebrile. She is currently breathing comfortably. Pain to the right gluteal is currently controlled. Overall drainage has decreased. Denies any chest pain, shortness of breath or cough. PHYSICAL EXAMINATION: Blood pressure 120/54 with a pulse of 108, temperature 97.3. She is 96% on room air. General description is a middle-aged female, lying in bed in no distress. RESPIRATORY SYSTEM: Unlabored breathing, clear to auscultation anteriorly. HEART: S1, S2. Regular rate and rhythm. ABDOMEN: Soft, no tenderness. Right gluteal wound is dressed. No obvious drainage on the dressing. LABS: White count of 6.1. The right buttock culture is currently pending. DIAGNOSTIC IMPRESSION AND PLAN: 1. Patient with right gluteal abscess, status post drainage, question of possible methicillin-resistant Staphylococcus aureus, failing outpatient oral antibiotic therapy. Waiting for the culture to finalize. Keep the patient on IV vancomycin, pharmacy to dose. 2. Patient possible urinary tract infection. If urine culture is negative, Rocephin will be discontinued. MMODL / IJN: [id number] /
[2017-05-07] MEDS: KETOROLAC 30 MG/ML 1 ML VIAL IVP PRN (18:57)
[2017-05-07] MEDS: carBAMazepine 300 MG CPMP.12HR PO SCH (20:09)
[2017-05-07] MEDS: TOPIRAMATE 100 MG TAB PO SCH (20:10)
[2017-05-07] MEDS: QUEtiapine 400 MG TAB PO SCH (20:10)
[2017-05-07] MEDS: PANTOPRAZOLE 40 MG TABLET PO SCH (20:10)
[2017-05-07] MEDS: hydrOXYzine HCL 25 MG TAB PO SCH (20:10)
[2017-05-07] MEDS: traZODone HCL 100 MG TAB PO SCH (20:11)
[2017-05-07] MEDS: Linaclotide [Linzess] 145 MCG PO SCH ×2 (20:11→20:21)
[2017-05-07] MEDS: TEMAZEPAM 15 MG CAP PO SCH (20:11)
--- NOTE | 2017-05-07 20:58 | PN ---
PROGRESS NOTE DATE OF SERVICE: May 07, 2017. PRESENTING COMPLAINT: Buttock abscess. INTERVAL HISTORY: Patient is status post right buttock abscess, status post I and D. Cultures are pending. Getting IV antibiotics. Pain is better controlled. Tolerating a diet. The patient is concerned about going home because has a cat at home. No nausea, vomiting. The patient states she had a bit of a meltdown yesterday. REVIEW OF SYSTEMS: Done for constitutional, cardiovascular, GI, pulmonary, relevant findings as above. The patient is rather calm and comfortable currently. CURRENT MEDICATIONS: Reviewed that include Symbicort, carbamazepine, IV ceftriaxone, Cymbalta, OxyContin, Seroquel, Topamax, Desyrel, vancomycin. PHYSICAL EXAMINATION: Afebrile. Pulse 108, respiratory 16, blood pressure 120/61, pulse ox 96% on room air. GENERAL: BMI 31.3. Lying in bed comfortable. Eyes: Pupils are equal, conjunctivae normal. HEENT: External appearance of nose and ears normal. Oral cavity normal. Neck: JVD not raised. Mass not palpable. Respiratory effort lungs fair entry. Cardiovascular: 1st and 2nd sounds normal. No edema. ABDOMEN: Soft, nontender. Liver and spleen not palpable. Dressing over the left buttock area. Psychiatry: Alert and oriented x3. Mood and affect normal. INVESTIGATIONS: White count 6.1, hemoglobin 9, potassium 3.7, bicarb 17, creatinine 1.18. Cultures are pending. ASSESSMENT: 1. Right buttock abscess, status post I and D causing sepsis now with clinical improvement. 2. Obesity; BMI 31.3. 3. Acute renal failure with creatinine going from 0.8 up to 1.4, now started to improve. 4. Metabolic acidosis secondary to renal failure. 5. Hypokalemia, improving. 6. Normocytic anemia likely due to infection. We will check iron parameters. 7. Reflex sympathetic dystrophy. 8. Bipolar disorder under control. 9. Chronic nicotine dependence patient is a cigarette smoker. PLAN: Patient is currently on IV ceftriaxone and vancomycin. ID is awaiting culture results to finalize antibiotics. I spoke to Dr. Dotson from General surgery. From his standpoint, the patient can be discharged. I did talk to the patient that we need to wait for the cultures to come back. She is ready to wait till at least tomorrow. Smoking cessation counseling was done with the patient including telling the patient this might interfere with her healing. The patient at this point does not want a nicotine patch. More than 3 minutes were spent for the counseling. THA / OTIS: [id number] /
[2017-05-07] MEDS: SODIUM BICARBONATE TAB 650 MG TAB PO SCH ×2 (21:33→23:09)
[2017-05-08] MEDS ORDERED: VANCOMYCIN 1,250 MG in SODIUM CHLORIDE 0.9% 250 ML IVPB SCH ×2
[2017-05-08] MEDS: 0.9% NACL WITH KCL 40 MEQ/L 1,000 ML IV SCH (05:16)
[2017-05-08 08:01] LABS: Basophils % (A) 1 %; Eosinophils # (A) 0.2 k/uL (0-0.7); Eosinophils % (A) 3 %; HCT 27.7 % (34.0-46.0); HGB 8.5 gm/dL (11.4-16.0); Lymphocytes # (A) 1.2 k/uL (1.0-4.8); Lymphocytes % (A) 25 %; MCH 30.5 pg (25.0-35.0); MCHC 30.7 g/dL (31.0-37.0); MCV 99.2 fL (80.0-100.0); Mean Platelet Volume 8.6; Monocytes # (A) 0.4 k/uL (0-1.0); Monocytes % (A) 8 %; Neutrophils # (A) 2.7 k/uL (1.3-7.7); Neutrophils % (A) 58 %; Platelet Count 252 k/uL (150-450); RBC 2.79 m/uL (3.80-5.40); WBC 4.6 k/uL (3.8-10.6)
[2017-05-08 08:19] LABS: Calcium 8.1 mg/dL (8.4-10.2); Potassium 3.9 mmol/L (3.5-5.1)
[2017-05-08] MEDS: HEPARIN SODIUM,PORCINE 5,000 UNIT/ML 1 ML VIAL SQ SCH (08:44)
[2017-05-08] MEDS: SODIUM BICARBONATE TAB 650 MG TAB PO SCH (08:45)
[2017-05-08] MEDS: DULoxetine HCL 60 MG CAPSULE.DR PO SCH (08:45)
[2017-05-08] MEDS: cefTRIAXone IN SWFI 1,000 MG/10 ML SYRINGE IVP SCH (08:45)
[2017-05-08] MEDS: busPIRone HCl 10 MG TAB PO SCH (09:11)
[2017-05-08] MEDS: oxyCODONE ER 20 MG TAB.ER.12H PO SCH (09:11)
[2017-05-08] MEDS: KETOROLAC 30 MG/ML 1 ML VIAL IVP PRN (10:34)
--- NOTE | 2017-05-08 14:20 | PN ---
PROGRESS NOTE DATE OF SERVICE: 05/08/2017. REASON FOR FOLLOWUP: 1. Right gluteal abscess. 2. Diarrhea. INTERVAL HISTORY: The patient is afebrile. She is breathing comfortably. Pain and swelling to the right gluteal area has improved. Overall drainage has decreased. Denies having any chest pain, shortness of breath or cough. However, the patient did have multiple loose stools since morning, though denies having any abdominal pain. PHYSICAL EXAMINATION: On examination, blood pressure is 114/63 with a pulse of 88, temperature 98.6. She is 97% on room air. General description is a middle-aged female lying in bed in no distress. RESPIRATORY SYSTEM: Unlabored breathing, clear to auscultation anteriorly. HEART: S1, S2. Regular rate and rhythm. ABDOMEN: Soft, no tenderness. The right buttock area overall induration has decreased, very minimal drainage. LABS: White count 4.6. Wound culture has been negative. DIAGNOSTIC IMPRESSION AND PLAN: 1. Patient with a right gluteal abscess, status post drainage. Initial concern for possible methicillin-resistant Staphylococcus aureus; however, the culture has been negative. She will be transitioned to oral Augmentin for about a week. 2. Diarrhea could be antibiotic associated hopefully improved comfort after discontinuation of the antibiotic therapy. She has been advised to increase her and yogurt intake and if no improvement in diarrhea to call us. MMKURTL / NAMN: [id number] /
[2017-05-08 14:58] VITALS: BP 154/86; PULSE 85; RESP 20; TEMP 97
--- NOTE | 2017-05-08 16:32 | DS ---
DISCHARGE SUMMARY DATE OF ADMISSION: May 04, 2017. DATE OF DISCHARGE: May 08, 2017. FINAL DIAGNOSES: 1. Right buttock abscess, status post I and D causing sepsis present on admission. 2. Obesity; BMI 31.3. 3. Acute renal failure probably acute tubular necrosis from sepsis much improved. 4. Metabolic acidosis secondary to renal failure. 5. Hypokalemia improved. 6. Normocytic anemia likely due to infection. 7. Reflex sympathetic dystrophy, chronic. 8. Bipolar disorder, chronic under control. 9. Chronic nicotine dependence, patient is a cigarette smoker. HOSPITAL COURSE: This patient had right buttock abscess, did have I and D done by Dr. Dotson. The healing much better. Cultures were noted. The patient's creatinine was up to 1.36 from 0.8, was coming down was 1.14 by the time of discharge. The bicarbonate was still low. Hence she was put on bicarbonate tablets today. I discussed with Dr. Goddard and discussed Dr. Dotson. The patient okay to be discharged. Care was discussed with the patient. The patient advised against smoking. On examination right buttock abscess with dressing in place. Lungs fair entry. Cardiovascular 1st and second sounds normal. DISCHARGE MEDICATIONS: 1. Cymbalta 120 mg p.o. daily. 2. Linzess 145 mcg p.o. daily. 3. Tizanidine 6 mg p.o. q.h.s. 4. Benzonatate 200 mg p.o. t.i.d. p.r.n. 5. Symbicort 160/4.5, 2 puffs b.i.d. p.r.n. 6. Depo-Provera 150 mg every 90 days. 7. Prilosec 40 mg p.o. daily. 8. Seroquel 400 mg p.o. daily. 9. Rozerem 8 mg p.o. q.h.s. 10.Dulera 1 dose subcu every 90 days. 11.Topamax 200 mg p.o. daily. 12.Buspirone 30 mg p.o. b.i.d. 13.Tegretol 600 mg p.o. q.h.s. 14.Oxycodone ER 60 mg p.o. q.12. 15.Trazodone 300 mg q.h.s. 16.Keflex 500 mg p.o. q.6h. 17.Sodium bicarb 650 mg p.o. q.i.d. 18.The patient's Motrin is being discontinued. I will call at home and conveyed the same. Follow with Dr. Silverman on May 13, 2017. Follow up with Dr. Dotson in 1 week. in 1 week. The patient to have a CBC BMP as an outpatient. Copy to Dr. Silverman. MMKURTL / IJN: [id number] /
== END 2017-05-08 15:12 | disposition home or self-care (01) | DRG 871 ==
LOC: EC 15:04 → 4MS4W 16:50
PROVIDERS: ADMIT Hospitalist; ATTEND Hospitalist
PROC: 0H98XZZ Drainage of Buttock Skin, External Approach (ICD-10-PCS; principal; 2017-05-05)
DX: A41.9 Sepsis, unspecified organism (principal); N17.0 Acute kidney failure with tubular necrosis; E87.2 Acidosis; E87.1 Hypo-osmolality and hyponatremia; G90.50 Complex regional pain syndrome I, unspecified; L02.31 Cutaneous abscess of buttock; L03.317 Cellulitis of buttock; N39.0 Urinary tract infection, site not specified; K52.1 Toxic gastroenteritis and colitis; D64.9 Anemia, unspecified; E66.9 Obesity, unspecified; E87.6 Hypokalemia; F12.90 Cannabis use, unspecified, uncomplicated; F17.210 Nicotine dependence, cigarettes, uncomplicated; F31.9 Bipolar disorder, unspecified; F90.9 Attention-deficit hyperactivity disorder, unspecified type; G47.30 Sleep apnea, unspecified; Z68.31 Body mass index [BMI] 31.0-31.9, adult; Z79.51 Long term (current) use of inhaled steroids; Z79.899 Other long term (current) drug therapy; Z80.3 Family history of malignant neoplasm of breast; Z86.718 Personal history of other venous thrombosis and embolism; T36.95XA Adverse effect of unspecified systemic antibiotic, initial encounter
CPT/HCPCS: 36415; 80048; 80053; 80202; 81001; 83605; 83735; 85025; 85610; 85730; 87040; 87070; 87075; 87086; 87205; 93005; 96365; 96366; 96375; 99285

== ENCOUNTER 2018-01-17 13:16 | Emergency (ER) | payer OTHER ==
--- NOTE | 2018-01-17 13:46 | ED ---
Anxiety HPI - General Source: patient, RN notes reviewed Mode of arrival: wheelchair Limitations: no limitations <Milan Clayton - Last Filed: 01/17/18 13:44> <Ingrid De Guzman M - Last Filed: 01/17/18 14:47> <Yuni Lyons P - Last Filed: 01/17/18 22:04> - General Chief Complaint: Anxiety Stated Complaint: Mental Health Time Seen by Provider: 01/17/18 13:27 - History of Present Illness Initial Comments: This a 42-year-old female presents emergency Department with mother for psychiatric evaluation. Patient apparently threatened to harm herself at home 4 times this morning. Patient states she is severely depressed and has issues of anxiety. Patient does not want to get out of bed. Patient states that she used to be on Valium though this was discontinued by her PCP because she was taking pain medication. Patient denies any homicidal ideation. Patient does admit to marijuana use denies any other drug use at this time states she has a history. Patient states she does drink alcohol frequently. Patient denies any physical complaints. Patient is aggravated that she is at the hospital at this time. (Milan Clayton) - Related Data Home Medications: Home Medications Medication Instructions Recorded Confirmed DULoxetine HCL [Cymbalta] 120 mg PO DAILY 12/25/14 05/04/17 tiZANidine HCL 6 mg PO HS 12/25/14 05/04/17 Benzonatate [Benzonatate Perle] 200 mg PO TID PRN 05/04/17 05/04/17 Budesonide/Formoterol Fumarate 2 puff INHALATION RT-BID PRN 05/04/17 05/04/17 [Symbicort 160-4.5 Mcg Inhaler] Medroxyprogesterone Acetate 150 mg IM Q90D 05/04/17 05/04/17 [Depo-Provera] Omeprazole [PriLOSEC] 40 mg PO DAILY@199905/04/17 05/04/17 QUEtiapine [SEROquel] 400 mg PO DAILY@199905/04/17 05/04/17 Ramelteon [Rozerem] 8 mg PO 05/04/17 05/04/17 Stelara (Unknown Dose) 1 dose SQ Q90D 05/04/17 05/04/17 Topiramate [Topamax] 200 mg PO DAILY@199905/04/17 05/04/17 busPIRone HCL 30 mg PO BID 05/04/17 05/04/17 carBAMazepine [TEGretol] 600 mg PO HS 05/04/17 05/04/17 traZODone HCL 300 mg PO HS 05/04/17 05/04/17 Azithromycin [Zithromax] 500 mg PO DIRECTED 01/17/18 01/17/18 Fluconazole [Diflucan] 150 mg PO DIRECTED 01/17/18 01/17/18 Ibuprofen [Motrin] 800 mg PO Q6H PRN 01/17/18 01/17/18 Propranolol [Inderal] 10 mg PO DIRECTED 01/17/18 01/17/18 hydrOXYzine HCL 25 mg PO DIRECTED 01/17/18 01/17/18 Allergies/Adverse Reactions: Allergies Allergy/AdvReac Type Severity Reaction Status Date / Time No Known Allergies Allergy Verified 01/17/18 14:10 Review of Systems ROS Other: All systems not noted in ROS Statement are negative. <Milan Clayton M - Last Filed: 01/17/18 13:44> ROS Other: All systems not noted in ROS Statement are negative. <Ingrid De Guzman M - Last Filed: 01/17/18 14:47> ROS Other: All systems not noted in ROS Statement are negative. <Yuni Lyons P - Last Filed: 01/17/18 22:04> ROS Statement: Those systems with pertinent positive or pertinent negative responses have been documented in the HPI. Past Medical History Past Medical History: Deep Vein Thrombosis (DVT), Sleep Apnea/CPAP/BIPAP Additional Past Medical History / Comment(s): bipolar reflex sympathetic dystropy(rsd),psoriases, constipation, hx broken rt femur-has adi/screws.no cpap used. some short term memory problemsadha, arthritis. History of Any Multi-Drug Resistant Organisms: None Reported Past Surgical History: Orthopedic Surgery Additional Past Surgical History / Comment(s): eye surg, rt femur sx-adi and screws Past Anesthesia/Blood Transfusion Reactions: Motion Sickness Additional Past Anesthesia/Blood Transfusion Reaction / Comment(s): clausterphobia Past Psychological History: ADD/ADHD, Anxiety, Bipolar Smoking Status: Current every day smoker Past Alcohol Use History: Daily, Heavy Past Drug Use History: Marijuana - Past Family History Mother Family Medical History: No Reported History Father Family Medical History: Cancer Additional Family Medical History / Comment(s): breast cancer <Milan Clayton - Last Filed: 01/17/18 13:44> General Exam Limitations: no limitations General appearance: alert, in no apparent distress Head exam: Present: atraumatic, normocephalic, normal inspection Eye exam: Present: normal appearance, PERRL, EOMI. Absent: scleral icterus, conjunctival injection, periorbital swelling ENT exam: Present: normal exam, mucous membranes moist Neck exam: Present: normal inspection, full ROM. Absent: tenderness, meningismus, lymphadenopathy Respiratory exam: Present: normal lung sounds bilaterally. Absent: respiratory distress, wheezes, rales, rhonchi, stridor Cardiovascular Exam: Present: regular rate, normal rhythm, normal heart sounds. Absent: systolic murmur, diastolic murmur, rubs, gallop, clicks GI/Abdominal exam: Present: soft, normal bowel sounds. Absent: distended, tenderness, guarding, rebound, rigid Psychiatric exam: Present: agitated Skin exam: Present: warm, dry, intact, normal color. Absent: rash <Milan Clayton M - Last Filed: 01/17/18 13:44> Course <Milan Clayton M - Last Filed: 01/17/18 13:44> <Ingrid De Guzman - Last Filed: 01/17/18 14:47> <Yuni Lyons P - Last Filed: 01/17/18 22:04> Vital Signs 01/17/18 01/17/18 01/17/18 13:22 19:45 21:56 Temperature 98.3 F 98.8 F 98.8 F Pulse Rate 103 H 97 100 Respiratory 22 18 16 Rate Blood Pressure 168/99 151/92 151/98 O2 Sat by Pulse 98 97 97 Oximetry - Reevaluation(s) Reevaluation #1: 01/17/18 14:47 Patient became very agitated, screaming at staff, demanding medication. She is being very aggressive toward staff. We will order Geodon and Ativan. She is also burned until 8 PM. (Ingrid De Guzman) - Lab Data Lab Results 01/17/18 01/17/18 Range/Units 14:11 14:11 Urine HCG, Qual Not Detected (Not Detectd) Urine Opiates Screen Not Detected (NotDetected) Ur Oxycodone Screen Not Detected (NotDetected) Urine Methadone Screen Not Detected (NotDetected) Ur Propoxyphene Screen Not Detected (NotDetected) Ur Barbiturates Screen Not Detected (NotDetected) U Tricyclic Antidepress Not Detected (NotDetected) Ur Phencyclidine Scrn Not Detected (NotDetected) Ur Amphetamines Screen Not Detected (NotDetected) U Methamphetamines Scrn Not Detected (NotDetected) U Benzodiazepines Scrn Not Detected (NotDetected) Urine Cocaine Screen Not Detected (NotDetected) U Marijuana (THC) Screen Detected H (NotDetected) Disposition <Milan Clayton M - Last Filed: 01/17/18 13:44> <Ingrid De Guzman M - Last Filed: 01/17/18 14:47> Is patient prescribed a controlled substance at d/c from ED?: No <Yuni Lyons P - Last Filed: 01/17/18 22:04> Clinical Impression: Acute anxiety, Depression Disposition: HOME SELF-CARE Instructions: Generalized Anxiety Disorder (ED) Referrals: Avinash Silverman MD [Primary Care Provider] - 1-2 days
[2018-01-17] MEDS ORDERED: hydrOXYzine HCL 25 MG TAB PO STA (14:35)
[2018-01-17] MEDS ORDERED: LORazepam 2 MG/ML INJ IM STA (14:35)
[2018-01-17] MEDS ORDERED: ZIPRASIDONE 20 MG VIAL IM STA (14:42)
[2018-01-17 14:48] LABS: Amphetamine Screen,Urine Not Detected (NotDetected); Barbiturate Screen,Urine Not Detected (NotDetected); Benzodiazepines Screen,Urine Not Detected (NotDetected); Cocaine Screen,Urine Not Detected (NotDetected); Methadone Screen, Urine Not Detected (NotDetected); Opiate Screen,Urine Not Detected (NotDetected); Oxycodone Screen, Urine Not Detected (NotDetected); Phencyclidine Screen,Urine Not Detected (NotDetected); Tricyclic Antidepressant,Urine Not Detected (NotDetected); Urn Cannabinoid Scrn Detected (NotDetected)
[2018-01-17 19:47] VITALS: TEMP 98.8
[2018-01-17 21:57] VITALS: BP 151/98; PULSE 100; RESP 16
== END 2018-01-17 22:14 | disposition home or self-care (01) ==
LOC: EC 13:16
DX: F32.9 Major depressive disorder, single episode, unspecified (principal); F41.9 Anxiety disorder, unspecified; G47.30 Sleep apnea, unspecified; Z99.89 Dependence on other enabling machines and devices; F90.9 Attention-deficit hyperactivity disorder, unspecified type; F17.200 Nicotine dependence, unspecified, uncomplicated; Z86.718 Personal history of other venous thrombosis and embolism; Z79.899 Other long term (current) drug therapy; Z53.8 Procedure and treatment not carried out for other reasons
CPT/HCPCS: 82075; 81025; 80306; 99284; 96372 ×2; J2060; J3486

== ENCOUNTER → 2023-08-21 | Outpatient (CLI) | payer OTHER | LOC: LABWHC1 15:44 | PROVIDERS: ATTEND Nurse Practitioner Family | DX: L40.0 Psoriasis vulgaris (principal); Z79.899 Other long term (current) drug therapy ==

== ENCOUNTER → 2023-08-25 | Outpatient (CLI) | payer OTHER | END | disposition home or self-care (01) | LOC: LABWHC1 15:29 | PROVIDERS: ATTEND Nurse Practitioner Family | DX: L40.0 Psoriasis vulgaris (principal); Z79.899 Other long term (current) drug therapy | CPT/HCPCS: 36415; 86480 ==

== ENCOUNTER 2023-09-08 09:06 | Day surgery (SDC) | payer OTHER ==
[~2023-09-08 09:06] MED LIST: LIDOCAINE 1% (10MG/ML) FOR IV START INTRADERMA PRN
[2023-09-08 09:33] VITALS: TEMP 97.2
[2023-09-08] MEDS: IV FLUID CONTINUATION 1,000 ML IV ONE (09:33)
[2023-09-08] MEDS: LACTATED RINGERS 1,000 ML IV SCH (09:42)
[2023-09-08] MEDS ORDERED: PROPOFOL 10 MG/ML 20 ML VIAL IV ONE (09:50)
--- NOTE | 2023-09-08 10:15 | P.PCN ---
Date of Procedure: 09/08/23 Procedure(s) Performed: BRIEF HISTORY: Patient is a 48-year-old, pleasant, white female scheduled for an upper endoscopy for further evaluation of severe heartburn off several months duration. She has longstanding stable GERD and has been on omeprazole 20 mg daily for 10 years. Patient was started on Pepcid 20 mg daily with no help. She was on Ozempic for a few months but because of worsening symptoms it was stopped but still remains symptomatic.. PROCEDURE PERFORMED: Esophagogastroduodenoscopy with biopsy. PREOPERATIVE DIAGNOSIS: Longstanding history of GERD/worsening heartburn and epigastric pain. IV sedation per anesthesia. PROCEDURE: After informed consent was obtained, the patient was brought into the endoscopy unit. IV sedation was administered by Anesthesia under continuous monitoring. Initially the Olympus GIF-140 video endoscope was inserted into the mouth. Esophagus intubated without any difficulty. It was gradually advanced into the stomach and duodenum and carefully examined. The bulb and the second part of the duodenum appeared normal. The scope at this time was withdrawn to the stomach, adequately insufflated with air, and upon careful examination, mucosa of the antrum and medical studies and biopsies were done from this area. There was large amount of food noted in gastric body suggestive of gastroparesis. Visualized portions of the mucosa of the body, cardia and the fundus appeared normal. The scope was then withdrawn into the esophagus. Small hiatal hernia noted. The GE junction was located at 39 cm from the incisors. It appears slightly irregular and there was a shotgun capacity and mucosa measuring 3 mm proximal GE junction that was biopsied. The esophagus appeared normal. There were no erosions or ulcerations seen and the patient tolerated the procedure well. IMPRESSION: 1. Large amount of bleeding solid food in the stomach suggestive of gastroparesis. 2. Mild antral gastritis 3. Small hiatal hernia and 3 mm short segment Moore's esophagus s/p biopsy. RECOMMENDATIONS: The findings of this examination were discussed with the p atient as well as family. She was advised to follow the biopsy results. (8. Increase omeprazole to 20 mg twice daily to be taken half hour before breakfast and dinnertime and follow antireflux measures and continue Pepcid at bedtime..
[2023-09-08 10:41] VITALS: BP 127/67; PULSE 78; RESP 18
== END 2023-09-08 11:05 | disposition home or self-care (01) ==
LOC: ORWHC2ENDO 09:06
PROVIDERS: ATTEND Internal Medicine Gastroenterology
DX: K44.9 Diaphragmatic hernia without obstruction or gangrene (principal); K29.50 Unspecified chronic gastritis without bleeding; K22.70 Barrett's esophagus without dysplasia; Z98.890 Other specified postprocedural states; J44.9 Chronic obstructive pulmonary disease, unspecified; I82.409 Acute embolism and thrombosis of unspecified deep veins of unspecified lower extremity; I26.99 Other pulmonary embolism without acute cor pulmonale; G90.59 Complex regional pain syndrome I of other specified site; F41.9 Anxiety disorder, unspecified; F31.9 Bipolar disorder, unspecified; F90.9 Attention-deficit hyperactivity disorder, unspecified type; L40.52 Psoriatic arthritis mutilans; Z79.1 Long term (current) use of non-steroidal anti-inflammatories (NSAID); Z79.02 Long term (current) use of antithrombotics/antiplatelets; Z79.899 Other long term (current) drug therapy; Z79.83 Long term (current) use of bisphosphonates
CPT/HCPCS: 81025; 88305; 43239; J2704